=== PATIENT | female | born 1970 | race Caucasian/White ===

== ENCOUNTER → 2019-09-22 13:55 | Outpatient (CLI) | payer BC, SELFPAY ==
[2019-09-02 12:37] VITALS: BMI 23.1
--- NOTE | 2019-09-22 13:59 | ECHOD_ITS ---
Reason For Study: MVP Procedure This was a 2D Doppler, Color Flow transthoracic echocardiogram. The study was technically difficult. Exam performed in department. Left Ventricle Normal LV size. Left ventricular systolic function is normal. The estimated ejection fraction is 65 %. No regional wall motion abnormalities noted. Right Ventricle Normal RV size. Normal systolic function. Atria Normal left atrium. Normal right atrium. Mitral Valve Bileaflet diffuse mitral valve thickening. Moderate mitral valve prolapse. Moderate (2+) eccentric mitral valve insufficiency. Tricuspid Valve Normal tricuspid valve. Mild tricuspid valve insufficiency. Pulmonic Valve Normal pulmonic valve. Great Vessels Normal aortic root. The pulmonary artery is normal size. Normal inferior vena cava. Pericardium/Pleural No pericardial effusion. MMode/2D Measurements & Calculations LVIDd: 5.5 cm IVSd: 0.65 cm Ao root diam: 2.9 cm LVIDs: 3.4 cm LVPWd: 0.74 cm RVDd: 3.1 cm FS: 39.1 % LAV(MOD-bp): 51.3 ml EDV(MOD-sp4): 102.5 ml LA A4 area: 18.5 cm2 LAV(MOD-bp) Indexed: 28.5 ml/m2 LAV(MOD-sp2): 52.4 ml LAV(MOD-sp4): 48.7 ml LA dimension(2D): 3.4 cm RA A4 area: 10.6 cm2 Doppler Measurements & Calculations Ao V2 max: 102.8 cm/sec LV V1 max: 78.3 cm/sec TR max addie: 210.0 cm/sec Ao max P.2 mmHg LV V1 max P.5 mmHg TR max P.7 mmHg Interpretation Summary Normal LV size. Left ventricular systolic function is normal. The estimated ejection fraction is 65 %. Bileaflet diffuse mitral valve thickening. Moderate mitral valve prolapse. Moderate (2+) eccentric mitral valve insufficiency. Ordering Physician: Elliott Ricardo Referring Physician: ALEKSANDR MAIN Performed By: Ara Bernal, RDCS, RVT
== END ==
PROVIDERS: Family Provider Family Medicine; PCP Family Medicine; Referring Provider Internal Medicine Cardiovascular Disease; Visit Provider Internal Medicine Cardiovascular Disease
DX: I34.1 Nonrheumatic mitral (valve) prolapse (principal)
CPT/HCPCS: 93306

== ENCOUNTER → 2020-11-11 12:57 | Outpatient (CLI) | payer BC, SELFPAY ==
[2020-11-11 10:36] VITALS: BMI 23.1
--- NOTE | 2020-11-11 13:06 | ECHOD_ITS ---
Reason For Study: MITRAL VALVE PROLAPSE Procedure This was a 2D Doppler, Color Flow transthoracic echocardiogram. Exam performed in department. Left Ventricle Normal LV size. Left ventricular systolic function is normal. The estimated ejection fraction is 60 %. No regional wall motion abnormalities noted. Right Ventricle Normal RV size. Normal systolic function. Atria Normal left atrium. Normal right atrium. Mitral Valve Bileaflet diffuse mitral valve thickening. Moderate mitral valve prolapse. Mild (1+) eccentric mitral valve insufficiency. Tricuspid Valve Normal tricuspid valve. Mild (1+) tricuspid valve insufficiency. Pulmonary artery systolic pressure is 24 mmHg. Aortic Valve Normal aortic valve. Trisinus/trileaflet aortic valve. Pulmonic Valve Normal pulmonic valve. Great Vessels Normal aortic root. The pulmonary artery is normal size. Normal inferior vena cava. Pericardium/Pleural No pericardial effusion. MMode/2D Measurements & Calculations LVIDd: 5.1 cm IVSd: 1.0 cm Ao root diam: 3.2 cm LVIDs: 3.0 cm LVPWd: 1.00 cm RVDd: 2.8 cm FS: 41.9 % LAV(MOD-sp4): 66.0 ml LA A4 area: 19.0 cm2 LA dimension(2D): 3.6 cm Time Measurements MV dec time: 0.15 sec Doppler Measurements & Calculations MV E max adryan: 102.9 cm/sec Lat Peak E' Adryan: 13.6 cm/sec Med Peak E' Adryan: 15.0 cm/sec MV A max adryan: 102.6 cm/sec E/E' lat: 7.6 E/E' med: 6.9 MV E/A: 1.0 Ao V2 max: 109.5 cm/sec LV V1 max: 83.6 cm/sec MR max adryan: 498.0 cm/sec Ao max P.8 mmHg LV V1 max P.8 mmHg MR max P.3 mmHg MR mean adryan: 391.0 cm/sec MR mean P.6 mmHg MR VTI: 79.6 cm PA V2 max: 75.6 cm/sec TR max adryan: 231.5 cm/sec TR max P.4 mmHg Interpretation Summary Normal LV size. Left ventricular systolic function is normal. The estimated ejection fraction is 60 %. Bileaflet diffuse mitral valve thickening. Moderate mitral valve prolapse. Mild (1+) eccentric mitral valve insufficiency. Ordering Physician: Elliott Ricardo Referring Physician: Arnulfo Holland Performed By: Mikayla Vela, ARACELI, RVT
== END ==
PROVIDERS: PCP Family Medicine; Visit Provider Internal Medicine Cardiovascular Disease
DX: I34.1 Nonrheumatic mitral (valve) prolapse (principal); I34.0 Nonrheumatic mitral (valve) insufficiency; I45.10 Unspecified right bundle-branch block
CPT/HCPCS: 93306

== ENCOUNTER 2022-01-16 10:58 | Outpatient (CLI) | payer BC, SELFPAY ==
--- NOTE | 2022-01-16 11:07 | ECHOD_ITS ---
Reason For Study: MITRAL VALVE PROLAPSE Procedure This was a 2D Doppler, Color Flow transthoracic echocardiogram. Exam performed in department. Left Ventricle Normal LV size. The estimated ejection fraction is 55 %. Normal diastology for age. No regional wall motion abnormalities noted. Right Ventricle Normal RV size. Normal systolic function. Atria Normal left atrium. Normal right atrium. Mitral Valve Bileaflet diffuse mitral valve thickening. Bileaflet mitral valve prolapse. Moderate mitral valve prolapse, bileaflet. Mild (1+) eccentric mitral valve insufficiency. Tricuspid Valve Normal tricuspid valve. Trivial tricuspid valve insufficiency. Pulmonary artery systolic pressure is 18 mmHg. Great Vessels Normal aortic root. The pulmonary artery is normal size. Normal inferior vena cava. Pericardium/Pleural No pericardial effusion. MMode/2D Measurements & Calculations LVIDd: 5.1 cm IVSd: 0.98 cm Ao root diam: 3.3 cm LVIDs: 3.5 cm LVPWd: 1.0 cm RVDd: 2.9 cm FS: 31.8 % LAV(MOD-bp): 66.8 ml LA dimension(2D): 3.7 cm LA A4 area: 18.4 cm2 LAV(MOD-bp) Indexed: 36.9 ml/m2 LAV(MOD-sp2): 63.8 ml LAV(MOD-sp4): 55.5 ml RA A4 area: 12.2 cm2 Doppler Measurements & Calculations MV E max adryan: 82.4 cm/sec Lat Peak E' Adryan: 8.9 cm/sec Med Peak E' Adryan: 7.4 cm/sec MV A max adryan: 68.4 cm/sec E/E' lat: 9.3 E/E' med: 11.1 MV E/A: 1.2 Ao V2 max: 88.4 cm/sec LV V1 max: 67.6 cm/sec MR max adryan: 421.0 cm/sec Ao max P.1 mmHg LV V1 max P.8 mmHg MR max P.9 mmHg TR max adryan: 190.0 cm/sec TR max P.4 mmHg ECHO/Echo Complete Interpretation Summary Normal LV size. The estimated ejection fraction is 55 %. Normal diastology for age. Bileaflet diffuse mitral valve thickening. Moderate mitral valve prolapse, bileaflet Mild (1+) eccentric mitral valve insufficiency. Compared to the previous echocardiogram from a year ago the above findings are essentially unchanged. Ordering Physician: Elliott Ricardo Referring Physician: OTD Performed By: Mikayla Vela, ARACELI, RVT
== END 2022-01-16 23:59 | disposition home or self-care (01) ==
PROVIDERS: Referring Provider Internal Medicine Cardiovascular Disease; Visit Provider Internal Medicine Cardiovascular Disease
DX: I34.1 Nonrheumatic mitral (valve) prolapse (principal); I34.0 Nonrheumatic mitral (valve) insufficiency; I45.10 Unspecified right bundle-branch block
CPT/HCPCS: 93306

== ENCOUNTER 2022-04-20 09:38 | Outpatient (CLI) | payer BC, SELFPAY ==
--- NOTE | 2022-04-20 09:50 | ECHOTEE_ITS ---
Reason For Study: MVP Medication KRZYSZTOF probe 6VT-D (SN [id number]) passed without difficulty. No complications were noted. Cetacaine Topical [place] given X3 orally. Versed 2 mg given slow IVP. Fentanyl 100 mcg given slow IVP. Performed a rapid injection of agitated mix of 9 cc saline and 1cc air to assess for atrial septal defect. Left Ventricle Normal LV size. Left ventricular systolic function is normal. The estimated ejection fraction is 60 %. No regional wall motion abnormalities noted. Right Ventricle Normal RV size. Normal systolic function. Atria Intact atrial septum. Normal left atrium. No thrombus is detected in the left atrial appendage. Normal right atrium. Mitral Valve Bileaflet diffuse mitral valve thickening. Bileaflet mitral valve prolapse. Mild-Moderate (1-2+) eccentric mitral valve insufficiency. Tricuspid Valve Normal tricuspid valve. Aortic Valve Normal aortic valve. Trisinus/trileaflet aortic valve. Pulmonic Valve Normal pulmonic valve. Vessels Normal aortic root. The pulmonary artery is normal size. Pericardium No pericardial effusion. ECHO/Echo Transesophageal (KRZYSZTOF) Interpretation Summary Normal LV size. Left ventricular systolic function is normal. The estimated ejection fraction is 60 %. Bileaflet diffuse mitral valve thickening. Bileaflet mitral valve prolapse. Mild-Moderate (1-2+) eccentric mitral valve insufficiency. Ordering Physician: Elliott Ricardo Referring Physician: Elliott Ricardo Performed By: Yenni Garcia, ARACELI, RVT
[2022-04-20 10:17] LABS: Anion Gap 2 (5-15); BUN 20 mg/dL (7-18); Calcium,Total 9.3 mg/dL (8.5-10.1); Chloride 109 mmol/L (98-107); Creatinine, Serum 1.11 mg/dL (0.55-1.02); EST Glomerular Filtration Rate 55 mL/min (>60); Est Glom Filt Rate - Afr Amer 66 mL/min (>60); Glucose 95 mg/dL (74-106); Potassium 4.4 mmol/L (3.5-5.1); Sodium Level 141 mmol/L (136-145)
== END 2022-04-20 14:15 | disposition home or self-care (01) ==
PROVIDERS: Referring Provider Internal Medicine Cardiovascular Disease; Visit Provider Internal Medicine Cardiovascular Disease
DX: R42 Dizziness and giddiness (principal); I34.1 Nonrheumatic mitral (valve) prolapse; I34.0 Nonrheumatic mitral (valve) insufficiency; I45.10 Unspecified right bundle-branch block
CPT/HCPCS: 36415; 80048; 87426; 93312; 93320; 93325; A4216